=== PATIENT | female | born 1970 | race Hispanic/Latino ===

== ENCOUNTER 2019-08-29 11:05 | Outpatient (CLI) | payer OTHER ==
--- NOTE | 2019-08-29 14:27 | RAD ---
TWO VIEW ABDOMEN: 08/29/19 Supine and upright views of abdomen obtained. INDICATIONS: Vomiting. The bowel gas pattern unremarkable. Scattered stool and gas seen throughout the colon. Small bowel ga s pattern is unremarkable. No evidence of small bowel dilatation. There are a few rounded calcifications overlying the mid left renal outline consistent with renal diana culi. The largest of these measures 5 mm. There is an oblong shaped calcification which overlies the transverse process on the left of L3 which measures up to 1.0 cm. This could potentially represent a left ureteral calculus and recommend clini diana correlation. No other significant finding. IMPRESSION: 1. Unremarkable bowel gas pattern. 2. Evidence of left urinary tract calculi with evidence of two renal calcifications on the left. There is an oblong shaped calcification overlying the left transverse process at L3 of uncertain loc ation. Correlate clinically as noted above. POS: [facility]
== END 2019-08-29 11:06 | disposition home or self-care (01) ==
LOC: MADRAD 11:05
DX: R11.10 Vomiting, unspecified (principal); N20.9 Urinary calculus, unspecified; N28.89 Other specified disorders of kidney and ureter; M48.8X6 Other specified spondylopathies, lumbar region
CPT/HCPCS: 74019

== ENCOUNTER 2019-08-30 20:22 | Emergency (ER) | payer OTHER, SELFPAY ==
[~2019-08-30 20:22] MED LIST: Iopamidol 370 76% 100 ML VIAL ONE; Sodium Chloride 0.9% 1,000 ML BAG ONE
[2019-08-30] MEDS ORDERED: Metoclopramide HCl 10 MG/2 ML VIAL ONE (20:46)
[2019-08-30] MEDS ORDERED: Ketorolac Tromethamine 30 MG/ML VIAL ONE (20:46)
[2019-08-30 20:56] LABS: #Basophils 0.1 thou/uL (0.0-0.2); #Eosinphils 0.1 thou/uL (0.0-0.7); #Lymphocytes 3.9 thou/uL (1.20-3.40); #Neutrophils 5.3 thou/uL (1.40-6.50); %Basophils 1.1 % (0.0-1.0); %Lymphocytes 37.9 % (21.0-51.0); %Monocytes 9.3 % (0.0-10.0); %Neutrophils 50.6 % (42.0-75.0); Hemoglobin 17.9 g/dL (12.0-16.0); Mean Corpuscular Hemoglobin 29.8 pg (27.0-31.0); Mean Corpuscular Volume 90.4 fL (78.0-98.0); Mean Platelet Volume 9.8 fL (7.4-10.4); Platelet Count 247 thou/uL (130-400); Red Blood Cell (RBC) Count 5.99 mill/uL (4.20-5.40); White Blood Cell (WBC) Count 10.4 thou/uL (4.8-10.8)
[2019-08-30 21:08] LABS: BHCG - Serum Negative (NEGATIVE); Pregs Control Background? CLEAR/WHITE (CLR/WHITE); Pregs Control Bar Appear? YES (CONTROL BAR)
[2019-08-30 21:10] LABS: ALT (SGPT) 26 U/L (8-55); AST (SGOT) 25 U/L (5-34); Albumin 4.4 g/dL (3.5-5.0); Alkaline Phosphatase 99 U/L (40-110); Anion Gap 26 mmol/L (10-20); BUN (Urea Nitrogen) 8 mg/dL (7.0-18.7); Bilirubin, Total 0.7 mg/dL (0.2-1.2); Calc. Creatinine Clearance 0 mL/min (70-130); Carbon Dioxide 14 mmol/L (22-29); Chloride 104 mmol/L (98-107); Estimated GFR-MDRD 58; Globulin 3.6 g/dL (2.4-3.5); Glucose 122 mg/dL (70-105); Lipase 20 U/L (8-78); Sodium 141 mmol/L (136-145)
[2019-08-30 21:16] LABS: Potassium 2.6 mmol/L (3.5-5.1)
[2019-08-30] MEDS ORDERED: metroNIDAZOLE 500 MG/100 ML BAG ONE (21:34)
[2019-08-30] MEDS ORDERED: Potassium Chloride 20 MEQ/100 ML PREMIX BAG ONE (21:39)
--- NOTE | 2019-08-30 22:32 | CT ---
CT abdomen and pelvis with IV contrast HISTORY: Abdominal pain. FINDINGS: The lung bases are clear. Within the posterior dome of the liver is a lobular predominantly low density mass that measures up to 3.8 cm x 2.4 cm greatest diameters on the axial images. It shows peripheral nodular contrast enhancement and is consistent with a hemangioma. Spleen, adrenal glands, and pancreas are within normal limits. No enlarged lymph nodes or free fluid. 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 Left kidney is somewhat scarred and atrophic. Multiple lobular calcifications are present within the nondilated calyces of the left kidne y. The largest measures up to 1.2 cm greatest diameter at the inferior pole. The ureters are decompressed without stone evident. Urinary bladder is unremarkable. Lobular heterogeneous density of the uterus is present with a 5.0 cm hyperdense fibroid projecting po steriorly. IMPRESSION : Horseshoe configuration of the kidneys. Nonobstructing calculi measuring up to 1.2 cm. Hemangioma of the liver. No aggressive abnormalities are evident. Fibroid involvement of the uterus.
--- NOTE | 2019-08-30 22:55 | RAD ---
Chest one view HISTORY: Dyspnea. FINDINGS: Cardiac silhouette is magnified by projection. Pulmonary vasculature is unremarkable. Mediastinum is midline. No confluent airspace consolidation or evidence of pneumothorax. IMPRESSION : No active cardiopulmonary abnormalities are demonstrated.
[2019-08-30] MEDS ORDERED: Vancomycin 1.5 GRAM/300 ML BAG 1.5 GM/300 ML BAG ONE (22:57)
[2019-08-30 23:52] LABS: Lactic Acid 0.9 mmol/L (0.5-2.2)
[2019-09-01 10:25] LABS: SARS-CoV-2 MS2 Positive; SARS-CoV-2 N Gene Negative; SARS-CoV-2 S Gene Negative; SARS-CoV-2 orf1ab Negative
== END 2019-08-31 00:11 | disposition home or self-care (01) ==
LOC: MADERS 20:22
DX: A41.9 Sepsis, unspecified organism (principal); R10.31 Right lower quadrant pain; I10 Essential (primary) hypertension; G43.909 Migraine, unspecified, not intractable, without status migrainosus
CPT/HCPCS: 36415; 71045; 74177; 80053; 83605; 83690; 84703; 85025; 87040; 87635; 93005; 96361; 96365; 96367; 96375; J1885; J2765; J3370; J3480; J7050; Q9967; U0003

== ENCOUNTER 2020-02-12 23:59 | Emergency (ER) | payer OTHER ==
[2020-02-13 00:28] LABS: #Basophils 0.1 thou/uL (0.0-0.2); #Lymphocytes 2.1 thou/uL (1.20-3.40); #Monocytes 0.7 thou/uL (0.11-0.59); #Neutrophils 6.1 thou/uL (1.40-6.50); %Basophils 0.7 % (0.0-1.0); %Eosinophils 0.1 % (0.0-10.0); %Lymphocytes 23.5 % (21.0-51.0); %Monocytes 7.4 % (0.0-10.0); %Neutrophils 68.3 % (42.0-75.0); Hemoglobin 14.6 g/dL (12.0-16.0); Mean Corpuscular HGB CONC 32.4 g/dL (32.0-36.0); Mean Corpuscular Hemoglobin 30.9 pg (27.0-31.0); Mean Corpuscular Volume 95.4 fL (78.0-98.0); Mean Platelet Volume 7.6 fL (7.4-10.4); Platelet Count 218 thou/uL (130-400); RBC Distribution Width 11.2 % (11.5-14.5); Red Blood Cell (RBC) Count 4.73 mill/uL (4.20-5.40); White Blood Cell (WBC) Count 8.9 thou/uL (4.8-10.8)
[2020-02-13 00:42] LABS: Bilirubin Negative (Negative); Blood, Urine Negative (Negative); Clarity Clear (Clear); Glucose, Urine (Dipstick) Negative (Negative); Ketone, Urine 80 mg/dL (Negative); Leukocyte Negative (Negative); Nitrite Negative (Negative); Protein, Urine (Dipstick) Trace mg/dL (Neg-Trace); Urobilinogen 0.2 mg/dL (Less than 2)
[2020-02-13 00:44] LABS: ALT (SGPT) 20 U/L (8-55); AST (SGOT) 21 U/L (5-34); Albumin 3.9 g/dL (3.5-5.0); Alkaline Phosphatase 91 U/L (40-110); Anion Gap 21 mmol/L (10-20); BUN (Urea Nitrogen) 11 mg/dL (7.0-18.7); Bilirubin, Total 0.5 mg/dL (0.2-1.2); Calc. Creatinine Clearance 0 mL/min (70-130); Calcium 8.9 mg/dL (7.8-10.44); Carbon Dioxide 18 mmol/L (22-29); Chloride 108 mmol/L (98-107); Estimated GFR-MDRD 80; Globulin 2.8 g/dL (2.4-3.5); Glucose 82 mg/dL (70-105); Lipase 6 U/L (8-78); Potassium 3.7 mmol/L (3.5-5.1); Protein, Total 6.7 g/dL (6.0-8.3); Sodium 143 mmol/L (136-145)
[2020-02-13 00:45] LABS: Specific Gravity, Urine 1.022 (1.005-1.030)
[2020-02-13] MEDS ORDERED: Morphine 4 MG/ML VIAL ONE (01:00)
[2020-02-13] MEDS ORDERED: Ondansetron PF 4 MG/2 ML Vial ONE (01:00)
[2020-02-13] MEDS ORDERED: Mag-Al Plus 1200 MG/1200 MG/120 MG/30 ML UDCUP ONE (01:01)
[2020-02-13] MEDS ORDERED: Lidocaine Viscous Sol 2% 15 ml UD Cup ONE (01:01)
[2020-02-13] MEDS ORDERED: Ketorolac Tromethamine 30 MG/ML VIAL ONE (02:02)
--- NOTE | 2020-02-13 07:41 | CT ---
PRELIMINARY REPORT/[facility]/EMERGENCY AFTER HOURS PROCEDURE: EXAM: CT Abdomen and Pelvis Without Intravenous Contrast CLINICAL HISTORY: PT BROUGHT IN BY EMS FOR ABD PAIN, KIDNEY PAIN, AND N/V. SYMPTOMS STARTED SEVERAL W EEKS AGO, BUT WORSENED RECENTLY. PT WITH HX OF RECENT UTI AND HAS BEEN ON SEVERAL DIFFERENT ANTIBIOTICS. TECHNIQUE: Axial computed tomography images of the abdomen and pelvis without intravenous contrast. CONTRAST: None. COMPARISON: None provided. FINDINGS: LUNG BASES: No basilar airspace consolidation or pleural effusion. LIVER: Unremarkable. GALLBLADDER AND BILE DUCTS: Unremarkable. No calcified stone. No ductal dilation. PANCREAS: Unremarkable. SPLEEN: Unremarkable. ADRENAL GLANDS: Unremarkable. KIDNEYS, URETERS, AND BLADDER: A horseshoe kidney is present. Several calculi in the left kidney cherri suring up to 8 mm. STOMACH AND BOWEL: No obstruction. No wall thickening. No CT evidence of colitis or acute diverticuli tis. Colonic diverticulosis. APPENDIX: No CT evidence for appendicitis. PERITONEUM: No free fluid. No free air. LYMPH NODES: No lymphadenopathy. REPRODUCTIVE: 4.9 cm a lesion in the posterior aspect of the uterine body. VASCULATURE: No aortic aneurysm. ABDOMINAL WALL AND SOFT TISSUES: Unremarkable. BONES: No fracture or suspicious osseous abnormality. IMPRESSION: No acute intra-abdominal or pelvic abnormality. Colonic diverticulosis with no evidence o f diverticulitis. Horseshoe kidney, a normal anatomic variant.. Several nonobstructive left-sided renal calculi. Fibroid along the posterior uterine body. ELECTRONICALLY SIGNED BY: Hector Bradford MD Feb 13, 2020 1:43:23 AM CDT FINAL REPORT ABDOMEN CT WITHOUT CONTRAST PELVIC CT WITHOUT CONTRAST: HISTORY: Pain. COMPARISON: None. FINDINGS: Abdomen CT: Lung bases:Minimal scarring and atelectasis. Heart size: Normal heart size. Aorta: Normal caliber. Solid organs: Imaging evaluation by lack of IV contrast. Grossly no solid organ abnormality. Lymph nodes: No gastrohepatic, retrocrural or periportal lymphadenopathy. Gallbladder: Grossly unremarkable. Mesentery: No mass, lymphadenopathy, free air or free fluid. Kidneys: Horseshoe kidney. Bilateral nonobstructing intrarenal calculi. Atrophy and scarring of the l eft kidney. Bilaterally no obstructive uropathy. Alimentary canal: Limited evaluation by the lack of oral contrast. No bowel obstruction. Normal calib er appendix. Diverticulosis. No diverticulitis. CT PELVIS: No mass, adenopathy, free air or free fluid. Uterine leiomyoma, incompletely evaluated. O therwise, grossly unremarkable reproductive organs. Urinary bladder: Unremarkable. Osseous structures: No lytic or blastic lesions IMPRESSION: 1. Horseshoe kidney. 2. No evidence of obstructive uropathy. 3. Normal caliber appendix. 4. This report is in agreement with initial report by [facility]. Transcribed Date/Time: 02/13/2020 7:57 AM
== END 2020-02-13 02:18 ==
LOC: MADERS 23:59
DX: R10.9 Unspecified abdominal pain (principal); I10 Essential (primary) hypertension; G43.909 Migraine, unspecified, not intractable, without status migrainosus; F41.9 Anxiety disorder, unspecified; F32.9 Major depressive disorder, single episode, unspecified; Z79.899 Other long term (current) drug therapy
CPT/HCPCS: 51701; 74176; 80053; 81003; 83605; 83690; 85025; 93005; 96374; 96375; J1885; J2270; J2405

== ENCOUNTER 2020-10-30 08:44 | Emergency (ER) | payer OTHER ==
[2020-10-30 09:25] LABS: #Basophils 0.1 thou/uL (0.0-0.2); #Eosinphils 0.4 thou/uL (0.0-0.7); #Lymphocytes 3.1 thou/uL (1.20-3.40); #Monocytes 0.5 thou/uL (0.11-0.59); #Neutrophils 6.2 thou/uL (1.40-6.50); %Basophils 0.9 % (0.0-1.0); %Eosinophils 3.7 % (0.0-10.0); %Lymphocytes 30.2 % (21.0-51.0); %Monocytes 5.2 % (0.0-10.0); %Neutrophils 60.1 % (42.0-75.0); Hemoglobin 15.3 g/dL (12.0-16.0); Mean Corpuscular HGB CONC 32.3 g/dL (32.0-36.0); Mean Corpuscular Hemoglobin 31.3 pg (27.0-31.0); Mean Corpuscular Volume 96.8 fL (78.0-98.0); Mean Platelet Volume 8.8 fL (7.4-10.4); Platelet Count 262 thou/uL (130-400); RBC Distribution Width 12.4 % (11.5-14.5); Red Blood Cell (RBC) Count 4.89 mill/uL (4.20-5.40); White Blood Cell (WBC) Count 10.3 thou/uL (4.8-10.8)
[2020-10-30 09:43] LABS: ALT (SGPT) 138 U/L (8-55); AST (SGOT) 60 U/L (5-34); Albumin 3.8 g/dL (3.5-5.0); Alkaline Phosphatase 138 U/L (40-110); Anion Gap 16 mmol/L (10-20); BUN (Urea Nitrogen) 14 mg/dL (7.0-18.7); Bilirubin, Total 0.4 mg/dL (0.2-1.2); Calc. Creatinine Clearance 0 mL/min (70-130); Calcium 9.2 mg/dL (7.8-10.44); Carbon Dioxide 23 mmol/L (22-29); Chloride 108 mmol/L (98-107); Globulin 3.4 g/dL (2.4-3.5); Glucose 109 mg/dL (70-105); Potassium 3.9 mmol/L (3.5-5.1); Protein, Total 7.2 g/dL (6.0-8.3); Sodium 143 mmol/L (136-145)
[2020-10-30] MEDS ORDERED: Aspirin Chewable 81 MG TAB ONE (09:44)
[2020-11-01 14:37] LABS: SARS-CoV-2 PCR by NAA Not Detected (NotDetected)
== END 2020-10-30 11:05 | disposition home or self-care (01) ==
LOC: MADERS 08:44
DX: S29.011A Strain of muscle and tendon of front wall of thorax, initial encounter (principal); J06.9 Acute upper respiratory infection, unspecified; R50.9 Fever, unspecified; R79.89 Other specified abnormal findings of blood chemistry; Z20.822 Contact with and (suspected) exposure to COVID-19; I10 Essential (primary) hypertension; G43.909 Migraine, unspecified, not intractable, without status migrainosus; X58.XXXA Exposure to other specified factors, initial encounter
CPT/HCPCS: 36415; 71046; 80053; 83605; 83880; 84484; 85025; 85379; 87040; 93005; 94760; J7620; U0003; U0005

== ENCOUNTER 2021-01-12 19:39 | Emergency (ER) | payer OTHER ==
[2021-01-12] MEDS ORDERED: HYDROcodone/Acetaminophen 5/325 mg Tablet ONE (20:35)
== END 2021-01-12 22:15 | disposition home or self-care (01) ==
LOC: MADERS 19:39
DX: S93.401A Sprain of unspecified ligament of right ankle, initial encounter (principal); S93.602A Unspecified sprain of left foot, initial encounter; G43.909 Migraine, unspecified, not intractable, without status migrainosus; I10 Essential (primary) hypertension; W17.2XXA Fall into hole, initial encounter